=== PATIENT | female | born 1975 | race Caucasian/White ===

== ENCOUNTER → 2017-12-09 | Outpatient (CLI) | payer OTHER ==
--- NOTE | 2017-12-11 10:17 | RADIOLOGY IMAGING REPORT ---
FACILITY: [facility] - [place] PATIENT NAME: DENISE HOOKER : [id number] MR: [id number] V: [id number] EXAM DATE: [id number] ORDERING PHYSICIAN: LINDA VAUGHAN TECHNOLOGIST: Dhara Phillips PROCEDURE:BILATERAL DIGITAL SCREENING MAMMOGRAM WITH CAD ASSISTED INTERPRETATION & 3D TOMOSYNTHESIS COMPARISON:Prior mammograms 11/07/16, 11/06/15, 11/01/14, 10/10/13 INDICATIONS:SCREENING FINDINGS: Moderately heterogeneous fibroglandular tissue is seen throughout the breasts. The parenchymal pattern has remained stable allowing for difference in mammographic technique & patient positioning. There is no evidence of malignant appearing mass, malignant appearing calcifications or other secondary sign of malignancy in either breast. DIAGNOSTIC CATEGORY 1--NEGATIVE. RECOMMENDATIONS: ROUTINE MAMMOGRAM AND CLINICAL EVALUATION. IMPRESSION: BIRADS 1: Negative No significant abnormality is seen Dictated by: Caroline Kirk M.D. on 12/09/2017 at 14:01 Transcribed by: TARI on 12/09/2017 at 14:10 Approved by: Caroline Kirk M.D. on 12/11/2017 at 10:16 [facility]
== END ==
LOC: MAMO 01:21
PROVIDERS: ATTEND Student in an Organized Health Care Education/Training Program
DX: Z12.31 Encounter for screening mammogram for malignant neoplasm of breast (principal)
CPT/HCPCS: 77063; 77067

== ENCOUNTER → 2019-01-07 | Outpatient (CLI) | payer OTHER ==
--- NOTE | 2019-01-11 10:08 | RADIOLOGY IMAGING REPORT ---
FACILITY: [facility] PATIENT NAME: DENISE HOOKER : [id number] MR: [id number] V: [id number] EXAM DATE: ORDERING PHYSICIAN: SHASHI GARCIA TECHNOLOGIST: Dhara Phillips PROCEDURE:BILATERAL DIGITAL SCREENING MAMMOGRAM WITH CAD ASSISTED INTERPRETATION & 3D TOMOSYNTHESIS COMPARISON:Prior mammograms 12/09/17, 11/07/16, 11/06/15, 11/01/14, 10/10/13. INDICATIONS:SCREENING FINDINGS: The breasts are heterogeneously dense which can obscure small masses. The parenchymal pattern has remained stable allowing for difference in mammographic technique & patient positioning. DIAGNOSTIC CATEGORY 1--NEGATIVE. RECOMMENDATIONS: ROUTINE MAMMOGRAM AND CLINICAL EVALUATION. IMPRESSION: BIRADS 1: Negative. No significant abnormality is seen. Dictated by: Caroline Kirk M.D. on 01/07/2019 at 9:30 Transcribed by: TARI on 01/07/2019 at 14:14 Approved by: Caroline Kirk M.D. on 01/11/2019 at 10:07 [facility]
== END ==
LOC: MAMO 00:46
PROVIDERS: ATTEND Nurse Practitioner Family
DX: Z12.31 Encounter for screening mammogram for malignant neoplasm of breast (principal)
CPT/HCPCS: 77063; 77067